=== PATIENT | male | born 1980 | race Caucasian/White ===

== ENCOUNTER 2017-10-28 12:18 | Emergency (ER) | payer OTHER ==
[~2017-10-28] VITALS: Ht 177.8 cm; Wt 65.8 kg
[~2017-10-28 12:18] MED LIST: AUGMENTIN 500M500 MG PO; BACTRIM DS 8001 TAB PO
[2017-10-28 12:37] VITALS: BP 120/71
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
[2017-10-28] MEDS ORDERED: IBUPROFEN800 M1 PO (15:28)
[2017-10-28] MEDS ORDERED: CYCLOBENZAPRINE10 M1 PO (15:28)
== END 2017-10-28 15:33 ==
LOC: ERH 12:18
DX: S16.1XXA Strain of muscle, fascia and tendon at neck level, initial encounter (principal); S39.012A Strain of muscle, fascia and tendon of lower back, initial encounter; V89.2XXA Person injured in unspecified motor-vehicle accident, traffic, initial encounter
CPT/HCPCS: 72050; 72110